=== PATIENT | female | born 1975 ===

== ENCOUNTER 2019-01-28 11:04 | Emergency (ER) | payer OTHER, SELFPAY ==
[2019-01-28 11:26] VITALS: O2SAT 100
[2019-01-28] MEDS ORDERED: Sodium Chloride 0.9% 1,000 ML IV STA (11:46)
--- NOTE | 2019-01-28 12:08 | ED PDOC ---
HPI: General Adult Time Seen by Provider: 01/28/19 12:05 Chief Complaint (Nursing): Abdominal Pain Chief Complaint (Provider): VAGINAL BLEEDING History Per: Patient (43 Y/O FEMALE HERE DYSFUNCTIONAL UTERINE BLEEDING ONGOING SINCE 01/05/2019. NOTES SHE WAS GIVEN 10 DAY COURSE OF PROGESTERONE WITH DECREASE TO SPOTTING FOR 10 DAYS BUT HAD REPEAT BLEEDING 01/24/2019 HEAVY. FEELS LIGHTHEADED. NOTES SHE HAD ULTRASOUND LAST WEEK DEMONSTRATING OVARIAN CYST.) Past Medical History Reviewed: Historical Data, Nursing Documentation, Vital Signs Vital Signs: Last Vital Signs Temp 98.3 F 01/28/19 11:26 Pulse 68 01/28/19 11:26 Resp 18 01/28/19 11:26 BP 124/67 01/28/19 11:26 Pulse Ox 100 01/28/19 11:26 - Family History Family History: States: No Known Family Hx - Home Medications Home Medications: Ambulatory Orders Medication Instructions Recorded MedroxyPROGESTERone [Provera] 10 mg PO DAILY #10 tab 01/28/19 - Allergies Allergies/Adverse Reactions: Allergies Allergy/AdvReac Type Severity Reaction Status Date / Time No Known Allergies Allergy Verified 01/28/19 11:35 Review of Systems ROS Statement: Except As Marked, All Systems Reviewed And Found Negative Physical Exam - Reviewed Nursing Documentation Reviewed: Yes Vital Signs Reviewed: Yes - Physical Exam Appears: Positive for: Well, Non-toxic, No Acute Distress Head Exam: Positive for: ATRAUMATIC, NORMAL INSPECTION, NORMOCEPHALIC Skin: Positive for: Normal Color, Warm, DRY Eye Exam: Positive for: EOMI, Normal appearance, PERRL ENT: Positive for: Normal ENT Inspection Neck: Positive for: Normal, Painless ROM Cardiovascular/Chest: Positive for: Regular Rate, Rhythm Respiratory: Positive for: CNT, Normal Breath Sounds Gastrointestinal/Abdominal: Positive for: Normal Exam, Soft Back: Positive for: Normal Inspection Extremity: Positive for: Normal ROM Neurologic/Psych: Positive for: Alert, Oriented - Laboratory Results Result Diagrams: 01/28/19 12:00 01/28/19 12:00 - ECG O2 Sat by Pulse Oximetry: 100 - Progress ED Course And Treament: PELVIC US: THICKENED ENDOMETRIAL COMPLEX MEASURING 19 MM WITHSEVERAL ECHOGENIC FOCI. THESE ECHOGENIC FOCI MAY BE DUE TO SEQUELA FROM PRIOR INSTRUMENTATION, INFECTION OR INFLAMMATION. ENLARGED LEOIMYOMATOUS UTERUS WITH A SINGLE DISCRETE FIBROID DESCRIBED ABOVE. NORMAL BILATERAL OVARIES. PREMENOPAUSAL SIMPLE OVARIAN CYS < 3M. NORMAL PHYSIOLOGIC FINDINGS DO NO NEED FOLLO WUP RESULS BY dR. RONALD GRANDE DICTATED 01/24/2019 18:03PM Disposition - Clinical Impression Clinical Impression: Dysfunctional uterine bleeding - Patient ED Disposition Is Patient to be Admitted: No - Disposition Referrals: Leslie Cowan MD [Staff Provider] - Sanjay Liu MD [Primary Care Provider] - Disposition: Routine/Home Disposition Time: 14:09 Condition: FAIR Additional Instructions: PLEASE BRING YOUR ULTRASOUND REPORT TO THE DIABETES SPECIALIST APPOINTMENT Prescriptions: MedroxyPROGESTERone [Provera] 10 mg PO DAILY #10 tab Instructions: Uterine Fibroids, Heavy Periods (DC)
[2019-01-28 12:40] LABS: BASO % 0.5 % (0.0-2.0); EOS # 0.2 K/uL (0.0-0.7); EOS % 3.1 % (0.0-4.0); HEMOGLOBIN 9.3 g/dL (12.0-16.0); LYMPH # 1.8 K/uL (1.0-4.3); LYMPH % 29.6 % (20.0-40.0); MEAN CELL VOLUME 91.9 fl (81.0-99.0); MEAN CORPUSCULAR HEMOGLOBIN 31.3 pg (27.0-31.0); MEAN CORPUSCULAR HGB CONC 34.1 g/dL (33.0-37.0); MEAN PLATELET VOLUME 9.3 fl (7.2-11.7); MONO # 0.4 K/uL (0.0-0.8); MONO % 6.3 % (0.0-10.0); NEUT # 3.7 K/uL (1.8-7.0); NEUT % 60.5 % (50.0-75.0); RBC 2.98 Mil/uL (3.80-5.20); RED CELL DISTRIBUTION WIDTH 13.2 % (11.5-14.5); WHITE BLOOD COUNT 6.1 K/uL (4.8-10.8)
[2019-01-28 12:53] LABS: INR 1.1; PROTHROMBIN TIME 12.2 Seconds (9.8-13.1)
[2019-01-28 12:54] LABS: BLOOD UREA NITROGEN 14 mg/dl (7-17); CALCIUM 9.2 mg/dL (8.4-10.2); GFR NON-AFRICAN AMERICAN > 60
[2019-01-28 12:56] LABS: PARTIAL THROMBOPLASTIN TIME 35.7 Seconds (25.6-37.1)
[2019-01-28 14:18] VITALS: BP 126/68; PULSE 69; RESP 16; TEMP 98
== END 2019-01-28 14:30 | disposition home or self-care (01) ==
LOC: H.ER 11:04 → SUPCPDRO 11:04 → H.ER 14:30
DX: N93.8 Other specified abnormal uterine and vaginal bleeding (principal); N83.209 Unspecified ovarian cyst, unspecified side; D25.9 Leiomyoma of uterus, unspecified
CPT/HCPCS: 80048; 81025; 85025; 85610; 85730; 86850; 86900; 96374; 99284; J1885; J7030

== ENCOUNTER 2019-01-30 16:46 | Emergency (ER) | payer OTHER ==
[2019-01-30 16:54] VITALS: O2SAT 100
[2019-01-30 18:22] LABS: BASO % 0.4 % (0.0-2.0); EOS # 0.3 K/uL (0.0-0.7); EOS % 2.7 % (0.0-4.0); HEMOGLOBIN 8.6 g/dL (12.0-16.0); LYMPH # 2.8 K/uL (1.0-4.3); LYMPH % 29.6 % (20.0-40.0); MEAN CELL VOLUME 92.6 fl (81.0-99.0); MEAN CORPUSCULAR HEMOGLOBIN 30.6 pg (27.0-31.0); MEAN CORPUSCULAR HGB CONC 33.1 g/dL (33.0-37.0); MEAN PLATELET VOLUME 8.8 fl (7.2-11.7); MONO # 0.7 K/uL (0.0-0.8); MONO % 7.4 % (0.0-10.0); NEUT # 5.7 K/uL (1.8-7.0); NEUT % 59.9 % (50.0-75.0); RBC 2.8 Mil/uL (3.80-5.20); RED CELL DISTRIBUTION WIDTH 13.3 % (11.5-14.5); WHITE BLOOD COUNT 9.6 K/uL (4.8-10.8)
[2019-01-30 18:29] LABS: INR 1.1; PROTHROMBIN TIME 12.2 Seconds (9.8-13.1)
[2019-01-30 18:31] LABS: PARTIAL THROMBOPLASTIN TIME 34.9 Seconds (25.6-37.1)
[2019-01-30 18:32] LABS: BLOOD UREA NITROGEN 16 mg/dl (7-17); CALCIUM 9.2 mg/dL (8.4-10.2); GFR NON-AFRICAN AMERICAN > 60
[2019-01-30] MEDS ORDERED: Iodixanol 320 MG/ML 100 ML BOTTLE IV ONE (18:42)
[2019-01-30] MEDS ORDERED: Sodium Chloride 0.9% 50 ML IV ONE (18:42)
--- NOTE | 2019-01-30 18:45 | ED PDOC ---
HPI: Chest Pain Time Seen by Provider: 01/30/19 16:58 Chief Complaint (Nursing): Chest Pain Chief Complaint (Provider): Chest Pain History Per: Patient History/Exam Limitations: no limitations Onset/Duration Of Symptoms: Hrs (@4am today morning) Current Symptoms Are (Timing): Still Present Additional Complaint(s): Patient is a 43 year old female with no past medical history, who presents to the emergency department complaining of left sided chest pain that is on and off since 4 am today. Patient states that she has some difficulty breathing along with the pain and that the pain is worse when touched. She further states that the pain is currently on and off. Patient denies any fever, cough or leg swelling and states that it is non-radiating with no exertional characters. She reports taking no medication for the pain and further states she does not remember having similar pain in the past. Additionally, patient states she has had an extended menstrual period that lasted for x25 days. She saw her PMD and has also been to the ED for it. Patient was given Provera that worked in the past and she started a new dose of x3 days ago. PMD: Sanjay Liu Past Medical History Reviewed: Historical Data, Nursing Documentation, Vital Signs Vital Signs: Last Vital Signs Temp 98.4 F 01/30/19 16:52 Pulse 76 01/30/19 16:52 Resp 16 01/30/19 16:52 BP 129/72 01/30/19 16:52 Pulse Ox 100 01/30/19 16:52 - Medical History PMH: No Chronic Diseases - Surgical History Surgical History: (x3) - Family History Family History: States: No Known Family Hx - Home Medications Home Medications: Ambulatory Orders Medication Instructions Recorded MedroxyPROGESTERone [Provera] 10 mg PO DAILY #10 tab 01/28/19 - Allergies Allergies/Adverse Reactions: Allergies Allergy/AdvReac Type Severity Reaction Status Date / Time No Known Allergies Allergy Verified 01/30/19 16:52 FERNANDA Risk Score for UA/NSTEMI - FERNANDA Risk Score Age > 64: NO 3 or more CAD Risk Factors: NO Known CAD (Stenosis greater than 50%): NO Aspirin use in past 7 days: NO Severe Angina: NO EKG ST changes greater than 0.5mm: NO Positive Cardiac Marker: NO FERNANDA Score: 0 Risk %: 5% Wells Criteria for PE - Wells Criteria for Pulmonary Embolism Clinical Signs and Symptoms of DVT: No P.E is #1 Diagnosis, or Equally Likely: Yes Heart Rate >100: No Immobilization at least 3 days;Surgery previous 4 weeks: No Previous, objectively diagnosed PE or DVT: No Hemoptysis: No Malignancy w/treatment within 6 months, or palliative: No Total Score: 1 Review of Systems ROS Statement: Except As Marked, All Systems Reviewed And Found Negative Constitutional: Negative for: Fever Cardiovascular: Positive for: Chest Pain Respiratory: Positive for: Other (difficulty breathing). Negative for: Cough Musculoskeletal: Negative for: Other (leg swelling) Physical Exam - Reviewed Nursing Documentation Reviewed: Yes Vital Signs Reviewed: Yes - Physical Exam Appears: Positive for: Non-toxic, No Acute Distress Head Exam: Positive for: ATRAUMATIC, NORMOCEPHALIC Skin: Positive for: Normal Color, Warm, Dry Eye Exam: Positive for: Normal appearance, EOMI, PERRL ENT: Positive for: Normal ENT Inspection Neck: Positive for: Normal, Painless ROM, Supple Cardiovascular/Chest: Positive for: Regular Rate, Rhythm. Negative for: Chest Non Tender (tenderness on palpation to the left chest wall ), Murmur Respiratory: Positive for: Normal Breath Sounds. Negative for: Respiratory Distress Gastrointestinal/Abdominal: Positive for: Normal Exam, Soft. Negative for: Tenderness Back: Positive for: Normal Inspection. Negative for: L CVA Tenderness, R CVA Tenderness, Vertebral Tenderness Extremity: Positive for: Normal ROM. Negative for: Pedal Edema, Deformity Neurologic/Psych: Positive for: Alert, Oriented. Negative for: Motor/Sensory Deficits - Laboratory Results Result Diagrams: 01/30/19 18:16 01/30/19 18:16 Lab Results: PT 12.2 Seconds (9.8-13.1) 01/30/19 18:16 INR 1.1 01/30/19 18:16 APTT 34.9 Seconds (25.6-37.1) 01/30/19 18:16 - ECG ECG: Positive for: Interpreted By Me, Viewed By Me ECG Rhythm: Positive for: Normal QRS, Normal ST Segment, Sinus Rhythm Rate: 76 O2 Sat by Pulse Oximetry: 100 Medical Decision Making Medical Decision Making: Time: 1708 Impression: Chest pain --Differential diagnosis includes but is not limited to pulmonary embolism, considering that she is taking progesterone. Less likely ACS and rule out Pneumothorax and musculoskeletal pain Plan: --CT angio Chest PE protocol --EKG --BMP --Troponin I --ED urine --CBC with differential --PT --PTT --Toradol 30 mg IVP --site monitor Time: 1900 --Patient care endorsed to Dr. Castaneda, pending CT angio and final disposition. Scribe Attestation: Documented by Ramana Perez, acting as a scribe for Alexi Davis MD. Provider Scribe Attestation: All medical record entries made by the Scribe were at my direction and personally dictated by me. I have reviewed the chart and agree that the record accurately reflects my personal performance of the history, physical exam, medical decision making, and the department course for this patient. I have also personally directed, reviewed, and agree with the discharge instructions and disposition. Disposition - Clinical Impression Clinical Impression: Chest pain - Patient ED Disposition Is Patient to be Admitted: Transfer of Care Counseled Patient/Family Regarding: Studies Performed, Diagnosis - Disposition Disposition: Transfer of Care Disposition Time: 19:00 Condition: STABLE Patient Signed Over To: John Castaneda
--- NOTE | 2019-01-30 19:18 | ED PDOC ---
- Laboratory Results Result Diagrams: 01/30/19 18:16 01/30/19 18:16 Lab Results: PT 12.2 Seconds (9.8-13.1) 01/30/19 18:16 INR 1.1 01/30/19 18:16 APTT 34.9 Seconds (25.6-37.1) 01/30/19 18:16 Troponin I < 0.0120 ng/mL (0.00-0.120) 01/30/19 18:16 - ECG O2 Sat by Pulse Oximetry: 100 (RA) Pulse Ox Interpretation: Normal Medical Decision Making Medical Decision Making: Time: 1899 --At 1899 patient signed out to provider pending CT, reevaluation and final disposition. Time: 1935 CT findings: PULMONARY ARTERIES No evidence of central or segmental pulmonary embolism is seen. AORTA There is no evidence for aneurysm or dissection of the thoracic aorta. LUNGS The lungs appear clear. PLEURAL SPACES No pneumothorax evident. No pleural effusions. HEART Heart size is within normal limits. No pericardial effusion. LYMPH NODES Mild non-specific bilateral hilar adenopathy possibly reactive. BONES No focal osseous abnormality or acute fracture. UPPER ABDOMEN Images of the upper abdomen demonstrate hepatomegaly. The liver measured 17.4 cm in the midclavicular line. IMPRESSION: 1. No identification of PE. 2. No acute pulmonary disease. 3. Mild non-specific bilateral hilar adenopathy possibly reactive. 4. Hepatomegaly. Time: 2004 --Patient is stable for discharge. Diagnosis is atypical chest pain and anemia. --Patient is to follow up with [facility] and has been given an Iron Rx. --Return precautions provided to patient --Patient has existing SENIOR UI DEVELOPER appointment with [facility] on Monday. Scribe Attestation: Documented by Ramana Perez, acting as a scribe for John Castaneda MD. Provider Scribe Attestation: All medical record entries made by the Scribe were at my direction and personally dictated by me. I have reviewed the chart and agree that the record accurately reflects my personal performance of the history, physical exam, medical decision making, and the department course for this patient. I have also personally directed, reviewed, and agree with the discharge instructions and disposition. Disposition - Clinical Impression Clinical Impression: Atypical chest pain, Anemia - POA Present On Arrival: None - Disposition Referrals: [facility] [Outside] [facility] [Outside] Disposition: Routine/Home Disposition Time: 20:05 Condition: STABLE Prescriptions: Ferrous Sulfate [Feosol] 325 mg PO TID #30 tab Instructions: Chest Pain That Is Not Caused by the Heart (DC), Anemia Caused by Low Iron, Adult (DC) Forms: [employer] (Romanian)
[2019-01-30 20:46] VITALS: BP 126/78; PULSE 79; RESP 16; TEMP 98.3
--- NOTE | 2019-01-31 08:44 | CT ---
Date of service: 01/30/2019 PROCEDURE: CT Chest with contrast (Pulmonary Angiogram) HISTORY: left sided chest pain COMPARISON: None available. TECHNIQUE: Axial computed tomography images were obtained of the chest in the pulmonary arterial phase of enhancement. Coronal and sagittal reformatted images were created and reviewed. Intravenous contrast dose: 95 mL Visipaque 320 Radiation dose: Total exam DLP = 339.01 mGy-cm. This CT exam was performed using one or more of the following dose reduction techniques: Automated exposure control, adjustment of the mA and/or kV according to patient size, and/or use of iterative reconstruction technique. FINDINGS: PULMONARY ARTERIES: Technically limited evaluation due to timing of scan relative to contrast bolus. No large central pulmonary embolus. Unable to adequately evaluate segmental/subsegmental pulmonary artery branches on the basis of this examination. AORTA: No acute findings. No thoracic aortic aneurysm. No aortic atherosclerotic calcification or mural plaque present. LUNGS: Unremarkable. No nodule, mass or pulmonary consolidation. PLEURAL SPACES: Unremarkable. No effusion or pneumothorax. HEART: Unremarkable. No cardiomegaly. No significant pericardial effusion. LYMPH NODES: There is minimal right hilar lymphadenopathy common nonspecific. There is no mediastinal or left hilar lymphadenopathy appreciated. BONES, CHEST WALL: Unremarkable. No fracture or destructive lesion OTHER FINDINGS: Unremarkable. IMPRESSION: Limited examination. No large central pulmonary embolus. Unable to adequately evaluate subsegmental/segmental pulmonary artery branches on the basis of this examination. No acute infiltrate. Minimal nonspecific right hilar lymphadenopathy. Otherwise unremarkable. The preliminary findings for this examination were reported by [facility] at 7:36 p.m. on 01/30/2019.. There is discordance of this report with the preliminary findings. Technical limitation of the examination was not described in the preliminary report of this examination.
--- NOTE | 2019-01-31 18:52 | CARD ---
APPROVED REPORT Date of service: 01/30/2019 EKG Measurement Heart [id number] MD [id number] <Conclusion> Normal sinus rhythm Normal ECG
--- NOTE | 2019-02-02 15:27 | ED PDOC ---
ED Additional Note - Date & Time of Evaluation Date of Evaluation: 02/02/19 Time of Evaluation: 15:15 - Physician Additional Note Physician Additional Note: PA performing Radiology call backs CTA chest 01/30/19: FINDINGS: PULMONARY ARTERIES: Technically limited evaluation due to timing of scan relative to contrast bolus. No large central pulmonary embolus. Unable to adequately evaluate segmental/subsegmental pulmonary artery branches on the basis of this examination. AORTA: No acute findings. No thoracic aortic aneurysm. No aortic atherosclerotic calcification or mural plaque present. LUNGS: Unremarkable. No nodule, mass or pulmonary consolidation. PLEURAL SPACES: Unremarkable. No effusion or pneumothorax. HEART: Unremarkable. No cardiomegaly. No significant pericardial effusion. LYMPH NODES: There is minimal right hilar lymphadenopathy common nonspecific. There is no mediastinal or left hilar lymphadenopathy appreciated. BONES, CHEST WALL: Unremarkable. No fracture or destructive lesion OTHER FINDINGS: Unremarkable. IMPRESSION: Limited examination. No large central pulmonary embolus. Unable to adequately evaluate subsegmental/segmental pulmonary artery branches on the basis of this examination. No acute infiltrate. Minimal nonspecific right hilar lymphadenopathy. Otherwise unremarkable. The preliminary findings for this examination were reported by [facility] at 7:36 p.m. on 01/30/2019.. There is discordance of this report with the preliminary findings. Technical limitation of the examination was not described in the preliminary report of this examination. I spoke with patient who states that she overall does not feel better in that she continues to bleed but has follow up with her check airman on Monday. She is having intermittent palpitations that are self alleviated. Denies further chest pain or Shortness of breath. Pt advised that she should return to ER if she begins to have persistent palpitations or develops shortness of breath or chest pain.
== END 2019-01-30 20:38 | disposition home or self-care (01) ==
LOC: H.ER 16:46
DX: R07.89 Other chest pain (principal); D64.9 Anemia, unspecified
CPT/HCPCS: 71275; 80048; 81025; 84484; 85025; 85610; 85730; 93005; 96374; 99285; J1885; Q9967

== ENCOUNTER 2019-02-05 11:03 | Emergency (ER) | payer OTHER, SELFPAY ==
[2019-02-05 11:17] VITALS: BMI 34.9
[2019-02-05] MEDS: Sodium Chloride 0.9% 1,000 ML IV STA (12:30)
[2019-02-05 12:37] LABS: BASO % 0.6 % (0.0-2.0); EOS # 0.2 K/uL (0.0-0.7); EOS % 2.6 % (0.0-4.0); HEMOGLOBIN 8.4 g/dL (12.0-16.0); LYMPH # 2.3 K/uL (1.0-4.3); LYMPH % 26.2 % (20.0-40.0); MEAN CELL VOLUME 91.7 fl (81.0-99.0); MEAN CORPUSCULAR HGB CONC 33.8 g/dL (33.0-37.0); MEAN PLATELET VOLUME 9.1 fl (7.2-11.7); MONO # 0.6 K/uL (0.0-0.8); MONO % 6.5 % (0.0-10.0); NEUT # 5.7 K/uL (1.8-7.0); NEUT % 64.1 % (50.0-75.0); NRBC % 0.1 % (0.0-0.0); RBC 2.71 Mil/uL (3.80-5.20); RED CELL DISTRIBUTION WIDTH 13.8 % (11.5-14.5); WHITE BLOOD COUNT 8.9 K/uL (4.8-10.8)
[2019-02-05 13:04] LABS: ALB/GLOB RATIO 1.2 (1.0-2.1); ALBUMIN 4.5 g/dL (3.5-5.0); ALT/SGPT 26 U/L (9-52); AST/SGOT 23 U/L (14-36); BLOOD UREA NITROGEN 15 mg/dl (7-17); CALCIUM 9.6 mg/dL (8.4-10.2); GFR NON-AFRICAN AMERICAN > 60
--- NOTE | 2019-02-05 13:21 | ED PDOC ---
HPI: Chest Pain Time Seen by Provider: 02/05/19 11:31 Chief Complaint (Nursing): Chest Pain History Per: Patient History/Exam Limitations: no limitations Onset/Duration Of Symptoms: Days (vaginal bleeding x 5 weeks. palpitations intermittent over past 2 weeks.) Current Symptoms Are (Timing): Still Present Quality: Other (palpitations) Additional Complaint(s): Pt. reports persistent vaginal bleeding which started 01/05/19, reports bleeding is daily and ranges from moderate (similar to period) to heavy vaginal bleeding with clots. Pt. saw her PMD and was started on progesterone which she completed, bleeding slowed and pt. was able to get an outpt. pelvic US. Pt. reports bleeding returned, heavy and pt. was seen here 01/28/19 with H&H (9.3/27.4). Pt. returned on 01/30/19, had a CTA chest and labs showed small drop in hgb (8.6/26). Pt. was discharged home on Iron and is still currently taking provera, last dose will be tomorrow. Pt. reports bleeding continues. Pt. reports palpitations are intermittent mostly when going from lying or sitting to standing and resolve after a couple seconds-->minutes; no associated cp. Pt. has her first appt. with chlorinator Dr. Cowan tomorrow 8am. - Risk Factors PE Risk Factors: Pos: Estrogen Usage Past Medical History Vital Signs: Last Vital Signs Temp 98.2 F 02/05/19 11:17 Pulse 76 02/05/19 11:56 Resp 17 02/05/19 11:17 BP 120/70 02/05/19 11:56 Pulse Ox 99 02/05/19 11:17 - Medical History PMH: No Chronic Diseases - Surgical History Surgical History: (x3) - Family History Family History: States: Unknown Family Hx - Immunization History Hx Tetanus Toxoid Vaccination: No Hx Influenza Vaccination: No Hx Pneumococcal Vaccination: No - Home Medications Home Medications: Ambulatory Orders Medication Instructions Recorded MedroxyPROGESTERone [Provera] 10 mg PO DAILY #10 tab 01/28/19 Ferrous Sulfate [Feosol] 325 mg PO TID #30 tab 01/30/19 Norgestimate-Ethinyl Estradiol 1 each PO DAILY 30 Days #30 tablet 02/05/19 [Ortho Tri-Cyclen Lo Tablet] - Allergies Allergies/Adverse Reactions: Allergies Allergy/AdvReac Type Severity Reaction Status Date / Time No Known Allergies Allergy Verified 01/30/19 16:52 Wells Criteria for PE - Wells Criteria for Pulmonary Embolism Clinical Signs and Symptoms of DVT: No P.E is #1 Diagnosis, or Equally Likely: Yes Heart Rate >100: No Immobilization at least 3 days;Surgery previous 4 weeks: No Previous, objectively diagnosed PE or DVT: No Hemoptysis: No Malignancy w/treatment within 6 months, or palliative: No Total Score: 1 Review of Systems Constitutional: Negative for: Fever, Chills Eyes: Negative for: Pain Cardiovascular: Positive for: Palpitations Physical Exam - Reviewed Nursing Documentation Reviewed: Yes Vital Signs Reviewed: Yes - Physical Exam Appears: Positive for: Well Head Exam: Positive for: ATRAUMATIC Skin: Positive for: Warm, Dry, Pallor Eye Exam: Positive for: Normal appearance ENT: Positive for: Normal ENT Inspection Neck: Positive for: Normal Cardiovascular/Chest: Positive for: Regular Rate, Rhythm Respiratory: Positive for: Normal Breath Sounds Gastrointestinal/Abdominal: Positive for: Normal Exam, Soft. Negative for: Tenderness - Laboratory Results Result Diagrams: 02/05/19 12:25 02/05/19 12:25 Lab Results: Troponin I < 0.0120 ng/mL (0.00-0.120) 02/05/19 12:25 Total Bilirubin 0.1 mg/dl (0.2-1.3) L 02/05/19 12:25 AST 23 U/L (14-36) 02/05/19 12:25 ALT 26 U/L (9-52) 02/05/19 12:25 Alkaline Phosphatase 62 U/L (38-126) 02/05/19 12:25 Total Protein 8.0 G/DL (6.3-8.2) 02/05/19 12:25 Albumin 4.5 g/dL (3.5-5.0) 02/05/19 12:25 Globulin 3.6 gm/dL (2.2-3.9) 02/05/19 12:25 Albumin/Globulin Ratio 1.2 (1.0-2.1) 02/05/19 12:25 - ECG O2 Sat by Pulse Oximetry: 99 Medical Decision Making Medical Decision Making: IV access established, labs sent, IVNS bolus given EKG: sinus at 70 bpm, with sinus arrhythmia, no acute ischemic changes. Pt. denies any cp, palpitations. Orthostatics: 100/58, hr 76...supine/100/56, hr 73 sitting....58/31, hr 91....standing. Pt. with symptomatic anemia. 1 unit PRBC ordered and consent obtained for transfusion. D/w Dr. Singh, covering Dr. Cowan, pt. can be discharge home on ocp orthotricyclin and pt. is to see Dr. Cowan tomorrow 8 am as scheduled. Pt comfortable with plan. Case endorsed to BARBIE Lim pending transfusion, reassessment. Disposition - Clinical Impression Clinical Impression: Dysfunctional uterine bleeding, Anemia - Patient ED Disposition Is Patient to be Admitted: Transfer of Care (to BARBIE Lim) - Disposition Referrals: Leslie Cowan MD [Staff Provider] - Disposition: Transfer of Care Disposition Time: 19:10 Condition: STABLE Prescriptions: Norgestimate-Ethinyl Estradiol [Ortho Tri-Cyclen Lo Tablet] 1 each PO DAILY 30 Days #30 tablet Instructions: Heavy Periods (DC), Anemia Caused by Low Iron, Adult (DC) Forms: [employer] (Ghanaian)
--- NOTE | 2019-02-05 21:08 | CARD ---
APPROVED REPORT Date of service: 02/05/2019 EKG Measurement Heart [id number] ND [id number] <Conclusion> Sinus rhythm with marked sinus arrhythmia Otherwise normal ECG
--- NOTE | 2019-02-05 21:52 | ED PDOC ---
- Laboratory Results Result Diagrams: 02/05/19 12:25 02/05/19 12:25 Lab Results: Troponin I < 0.0120 ng/mL (0.00-0.120) 02/05/19 12:25 Total Bilirubin 0.1 mg/dl (0.2-1.3) L 02/05/19 12:25 AST 23 U/L (14-36) 02/05/19 12:25 ALT 26 U/L (9-52) 02/05/19 12:25 Alkaline Phosphatase 62 U/L (38-126) 02/05/19 12:25 Total Protein 8.0 G/DL (6.3-8.2) 02/05/19 12:25 Albumin 4.5 g/dL (3.5-5.0) 02/05/19 12:25 Globulin 3.6 gm/dL (2.2-3.9) 02/05/19 12:25 Albumin/Globulin Ratio 1.2 (1.0-2.1) 02/05/19 12:25 - ECG O2 Sat by Pulse Oximetry: 100 - Progress ED Course And Treament: case endorsed to insurance underwriter sales from [employer] pending re-eval after blood transfusion 21:30 Patient awake, resting comfortably. Blood transfusing 23:00 Patient awake, resting comfortably. Blood transfusing 1:00 Patient awake, states she is feeling much better. Transfusion finished Vitals stable Patient educated on findings, discharged with instructions to follow up with Laminating Machine Tender at scheduled appointment today. Return precautions given Disposition - Clinical Impression Clinical Impression: Dysfunctional uterine bleeding, Anemia - POA Present On Arrival: None - Disposition Referrals: Leslie Cowan MD [Staff Provider] - Disposition: Routine/Home Disposition Time: :01 Condition: IMPROVED Prescriptions: Norgestimate-Ethinyl Estradiol [Ortho Tri-Cyclen Lo Tablet] 1 each PO DAILY 30 Days #30 tablet Instructions: Anemia Caused by Low Iron, Adult (DC), Heavy Periods (DC), Blood Transfusion Forms: [employer] (Lao)
[2019-02-06 00:31] VITALS: BP 108/53; PULSE 78; RESP 18; TEMP 98.4
[2019-02-06 01:16] VITALS: O2SAT 99
== END 2019-02-06 01:16 | disposition home or self-care (01) ==
LOC: H.ER 11:03
DX: N93.8 Other specified abnormal uterine and vaginal bleeding (principal); D64.9 Anemia, unspecified
CPT/HCPCS: 36430; 80053; 84484; 85025; 86850; 86900; 86920; 93005; 99285; J7030; P9051